=== PATIENT | female | born 1985 | race Caucasian/White ===

== ENCOUNTER 2016-10-11 11:39 | Emergency (ER) | payer OTHER ==
[2016-10-11 11:42] VITALS: TEMP 97.3
--- NOTE | 2016-10-11 12:40 | ED ---
Back Pain HPI - General Chief Complaint: Back Pain/Injury Stated Complaint: back pain Time Seen by Provider: 10/11/16 12:09 Source: patient, RN notes reviewed Limitations: no limitations - History of Present Illness Initial Comments: Patient is a 31-year-old female presents to the emergency room for evaluation of left-sided back pain. Patient states had this back pain on and off since April. 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 Patient states she's noticed the pain ever since she started her job in March. Patient states she has a sharp pain under her left shoulder blade. Patient states pain is worse whenever she lifts or moves the wrong way. Patient states when she sitting still she can feel her muscle spasming. Patient states she has been following up with her primary care provider and has an appointment with neurologist in until October. Patient states she's been placed on baclofen, ibuprofen, Advil, Flexeril with no relief of symptoms. Patient states that she has been applying ice over the area of slight relief of symptoms. Patient denies any numbness or tingling in her extremities. Patient denies fecal or urinary incontinence. Patient denies any known injuries or recent falls or trauma to her back. Patient denies pain or burning during urination, trouble urinating or blood in urine. - Related Data Home Medications Medication Instructions Recorded Confirmed Baclofen 10 mg PO QID PRN 10/11/16 10/11/16 Ibuprofen [Advil] 600 mg PO Q8HR PRN 10/11/16 10/11/16 Previous Rx's Medication Instructions Recorded traMADol HCl [Ultram] 50 mg PO Q4H PRN #12 tab 10/11/16 Allergies Allergy/AdvReac Type Severity Reaction Status Date / Time Sulfa (Sulfonamide Allergy Rash/Hives Verified 10/11/16 11:42 Antibiotics) Review of Systems ROS Statement: Those systems with pertinent positive or pertinent negative responses have been documented in the HPI. ROS Other: All systems not noted in ROS Statement are negative. Past Medical History Past Medical History: Asthma, Fibromyalgia, Osteoarthritis (OA), Pneumonia Additional Past Medical History / Comment(s): EXERCISED INDUCED ASTHMA, CURRENTLY GAINING WT QUICKLY AND CONSTIPATED, HAS NUVARING PRESENT FOR CONTROL, RECENT INJURY TO LT FT BRUISED AND PAINFUL History of Any Multi-Drug Resistant Organisms: None Reported Past Surgical History: Section, Orthopedic Surgery Additional Past Surgical History / Comment(s): CSECTION X3,ARTHROSCOPY EVERARDO KNEES ,LAPAROSCOPY Past Anesthesia/Blood Transfusion Reactions: Motion Sickness Past Psychological History: No Psychological Hx Reported Smoking Status: Current every day smoker Past Alcohol Use History: Rare Additional Past Alcohol Use History / Comment(s): QUIT SMOKING JUN 2014, SMOKED FOR APPROX 15 YRS 1 PACK PER DAY Past Drug Use History: None Reported - Past Family History Father Family Medical History: No Reported History Mother Family Medical History: No Reported History General Exam - General Exam Comments Initial Comments: Sitting in exam room, no acute distress. Limitations: no limitations General appearance: alert, in no apparent distress Head exam: Present: atraumatic, normocephalic, normal inspection Eye exam: Present: normal appearance ENT exam: Present: normal exam Neck exam: Present: normal inspection Respiratory exam: Present: normal lung sounds bilaterally. Absent: respiratory distress Cardiovascular Exam: Present: regular rate, normal rhythm, normal heart sounds Extremities exam: Present: normal inspection Back exam: Present: normal inspection, full ROM, tenderness (Tenderness on palpating inferior to the left shoulder blade muscle spasming) Neurological exam: Present: alert, oriented X3, CN II-XII intact, normal gait Psychiatric exam: Present: normal affect, normal mood Skin exam: Present: warm, dry, intact, normal color. Absent: rash Course Vital Signs 10/11/16 10/11/16 11:40 13:02 Temperature 97.3 F L Pulse Rate 74 85 Respiratory 18 16 Rate Blood Pressure 147/68 121/75 O2 Sat by Pulse 100 100 Oximetry Medical Decision Making - Medical Decision Making Patient is a 31-year-old female presents to the emergency room for evaluation of back pain and muscle spasming. Agreed to send patient home with pain medications until she can follow up with either her primary care provider or neurologist. Patient states she understands everything that was discussed with her. Return parameters discussed. Disposition Clinical Impression: Back pain, Muscle spasm of back Disposition: HOME SELF-CARE Condition: Good Instructions: Muscle Spasm (ED) Additional Instructions: Take medications as needed. Please follow up with primary care provider or neurologist. If any new symptom arises or symptoms worsen, return to ER as soon as possible. Prescriptions: traMADol HCl [Ultram] 50 mg PO Q4H PRN #12 tab PRN Reason: Pain Referrals: Silver Mayes MD [Primary Care Provider] - 1-2 days Time of Disposition: 12:38
[2016-10-11 13:03] VITALS: BP 121/75; PULSE 85; RESP 16
== END 2016-10-11 13:03 | disposition home or self-care (01) ==
LOC: EC 11:39
DX: M62.830 Muscle spasm of back (principal); F17.200 Nicotine dependence, unspecified, uncomplicated; Z88.2 Allergy status to sulfonamides
CPT/HCPCS: 99283

== ENCOUNTER → 2016-11-17 | Outpatient (CLI) | payer OTHER ==
--- NOTE | 2016-11-17 15:56 | MR ---
MR thoracic spine HISTORY: Left-sided thoracic spine back pain Multiplanar multisequence imaging through the thoracic spine No comparisons Thoracic vertebral bodies show preserved height and alignment. There is multilevel spondylosis, endpl ate discogenic marrow signal change and Schmorl node formation. Some loss of disc height and signal i s present especially at T6-7. Thoracic cord signal is maintained. No significant central canal stenos is or foraminal encroachment. There is a mild spinal curvature. T3-4 shows a minute right posterior paracentral disc herniation causing minimal anterior mass effect on the thecal sac. T5-6 shows a minute posterior paracentral disc herniation in the right side. T8-9 shows a small Facet arthropathy changes are present at the lower thoracic spine. IMPRESSION: Mild degenerative disc disease, facet arthropathy. Additional findings above. Posterior d isc herniation causing minimal anterior mass effect on the thecal sac.
== END | disposition home or self-care (01) ==
LOC: RADMRIMAIN 12:40
PROVIDERS: ATTEND Psychiatry & Neurology Neurology
DX: M51.24 Other intervertebral disc displacement, thoracic region (principal); M51.34 Other intervertebral disc degeneration, thoracic region; M46.94 Unspecified inflammatory spondylopathy, thoracic region
CPT/HCPCS: 72146

== ENCOUNTER → 2017-01-25 | Outpatient (CLI) | payer OTHER ==
--- NOTE | 2017-01-25 23:37 | MR ---
EXAMINATION TYPE: MR cervical spine wo con DATE OF EXAM: 01/25/2017 COMPARISON: NONE HISTORY: Pain, Numbness, Tingling, and Swelling in Both Arms TECHNIQUE: Multiplanar, multisequence images of the cervical spine were acquired. Cervical vertebra have normal alignment. Disc spaces are fairly normal. Cervical spinal cord has norm al signal pattern without evidence of edema. There is a small posterior C5-6 disc herniation centrall y and towards the right side. The neural foramina appear fairly well maintained. There is no paraspin al mass. Brainstem is intact. There is no spinal stenosis. There is no fracture. IMPRESSION: There is mild posterior central and right-sided C5-6 cervical disc herniation. No significant impinge ment on the neural elements.
== END | disposition home or self-care (01) ==
LOC: RADMRIMAIN 21:56
PROVIDERS: ATTEND Psychiatry & Neurology Neurology
DX: M50.222 Other cervical disc displacement at C5-C6 level (principal)
CPT/HCPCS: 72141

== ENCOUNTER 2017-03-25 21:05 | Emergency (ER) | payer OTHER ==
[2017-03-25 21:15] VITALS: RESP 16
[2017-03-25] MEDS ORDERED: SODIUM CHLORIDE 0.9% 1,000 ML IV STA (21:25)
[2017-03-25] MEDS ORDERED: KETOROLAC 30 MG/ML 1 ML VIAL IVP STA (21:25)
[2017-03-25] MEDS ORDERED: ONDANSETRON 4 MG/2 ML VIAL IVP STA (21:25)
[2017-03-25 22:23] LABS: Basophils % (A) 0 %; CH 31.5; CHCM 35.3; Eosinophils # (A) 0.2 k/uL (0-0.7); Eosinophils % (A) 2 %; HCT 38.6 % (34.0-46.0); HDW 2.54; HGB 13.7 gm/dL (11.4-16.0); Luc # (Auto) 0.15; Luc % (Auto) 2; Lymphocytes # (A) 1.9 k/uL (1.0-4.8); Lymphocytes % (A) 24 %; MCH 31.8 pg (25.0-35.0); MCHC 35.5 g/dL (31.0-37.0); MCV 89.6 fL (80.0-100.0); Mean Platelet Volume 7.9; Monocytes # (A) 0.3 k/uL (0-1.0); Monocytes % (A) 4 %; Neutrophils # (A) 5.4 k/uL (1.3-7.7); Neutrophils % (A) 67 %; RBC 4.31 m/uL (3.80-5.40); RDW 12.8 % (11.5-15.5); WBC (Perox) 8.27
[2017-03-25 22:35] LABS: ALT 21 U/L (9-52); AST 32 U/L (14-36); Alkaline Phosphatase 35 U/L (38-126); Amylase 36 U/L (30-110); Anion Gap 11 mmol/L; Blood Urea Nitrogen 9 mg/dL (7-17); Calcium 9.4 mg/dL (8.4-10.2); Carbon Dioxide 22 mmol/L (22-30); Chloride 107 mmol/L (98-107); Glucose 79 mg/dL (74-99); Non-African American GFR(MDRD) >60 (>60 ml/min/1.73 sqM); Potassium 4.3 mmol/L (3.5-5.1); Sodium 140 mmol/L (137-145); Total Bilirubin 0.8 mg/dL (0.2-1.3); Total Protein 7.8 g/dL (6.3-8.2)
--- NOTE | 2017-03-25 22:43 | ED ---
Female Urogenital HPI - General Chief complaint: Urogenital Stated complaint: kidney pain/bladder problems Time Seen by Provider: 03/25/17 21:17 Source: patient, RN notes reviewed Mode of arrival: ambulatory Limitations: no limitations - History of Present Illness Initial comments: This is a 31-year-old female presents emergency department she went right flank pain. Patient states it started about couple days. Patient has a history of pyelonephritis. Patient states she has had some urinary frequency and dysuria. She does complain of some mild suprapubic tenderness. Patient denies any vomiting but states she's had some nausea. Denies fever, chills, headache or dizziness. She denies any chance . Denies any vaginal bleeding or vaginal discharge at this time. Last Menstrual Period: 03/18/17 - Related Data Home Medications Medication Instructions Recorded Confirmed Baclofen 10 mg PO QID PRN 10/11/16 10/11/16 Ibuprofen [Advil] 600 mg PO Q8HR PRN 10/11/16 10/11/16 Previous Rx's Medication Instructions Recorded traMADol HCl [Ultram] 50 mg PO Q4H PRN #12 tab 10/11/16 Allergies Allergy/AdvReac Type Severity Reaction Status Date / Time Sulfa (Sulfonamide Allergy Rash/Hives Verified 03/25/17 21:16 Antibiotics) Review of Systems ROS Statement: Those systems with pertinent positive or pertinent negative responses have been documented in the HPI. ROS Other: All systems not noted in ROS Statement are negative. Past Medical History Past Medical History: Asthma, Fibromyalgia, Osteoarthritis (OA), Pneumonia Additional Past Medical History / Comment(s): EXERCISED INDUCED ASTHMA History of Any Multi-Drug Resistant Organisms: None Reported Past Surgical History: Section, Orthopedic Surgery Additional Past Surgical History / Comment(s): CSECTION X3,ARTHROSCOPY EVERARDO KNEES ,LAPAROSCOPY Past Anesthesia/Blood Transfusion Reactions: Motion Sickness Past Psychological History: No Psychological Hx Reported Smoking Status: Current every day smoker Past Alcohol Use History: Rare Past Drug Use History: None Reported - Past Family History Father Family Medical History: No Reported History Mother Family Medical History: No Reported History General Exam Limitations: no limitations General appearance: alert, in no apparent distress Head exam: Present: atraumatic, normocephalic, normal inspection Respiratory exam: Present: normal lung sounds bilaterally. Absent: respiratory distress, wheezes, rales, rhonchi, stridor Cardiovascular Exam: Present: regular rate, normal rhythm, normal heart sounds. Absent: systolic murmur, diastolic murmur, rubs, gallop, clicks GI/Abdominal exam: Present: soft, tenderness (Mild suprapubic tenderness), normal bowel sounds. Absent: distended, guarding, rebound, rigid Back exam: Present: CVA tenderness (R) (Mild right). Absent: CVA tenderness (L) Skin exam: Present: warm, dry, intact, normal color. Absent: rash Course Vital Signs 03/25/17 03/25/17 21:12 23:04 Temperature 98.3 F 98.7 F Pulse Rate 110 H 89 Respiratory 16 16 Rate Blood Pressure 142/85 137/73 O2 Sat by Pulse 100 100 Oximetry Medical Decision Making - Medical Decision Making 31-year-old female presented emergency from for flank pain and lower abdominal pain. Patient's lab work is unremarkable. Patient's urinalysis does not show any acute abnormality. Patient does have a large also on the right and in the rectum. Patient is advised to increase her bowel movement take a stool softener and laxative. Return parameters were discussed. - Lab Data Result diagrams: 03/25/17 21:45 03/25/17 21:45 Lab Results 03/25/17 03/25/17 03/25/17 Range/Units 21:45 21:45 21:45 WBC 8.0 (3.8-10.6) k/uL RBC 4.31 (3.80-5.40) m/uL Hgb 13.7 (11.4-16.0) gm/dL Hct 38.6 (34.0-46.0) % MCV 89.6 (80.0-100.0) fL MCH 31.8 (25.0-35.0) pg MCHC 35.5 (31.0-37.0) g/dL RDW 12.8 (11.5-15.5) % Plt Count 159 (150-450) k/uL Neutrophils % 67 % Lymphocytes % 24 % Monocytes % 4 % Eosinophils % 2 % Basophils % 0 % Neutrophils # 5.4 (1.3-7.7) k/uL Lymphocytes # 1.9 (1.0-4.8) k/uL Monocytes # 0.3 (0-1.0) k/uL Eosinophils # 0.2 (0-0.7) k/uL Basophils # 0.0 (0-0.2) k/uL Sodium 140 (137-145) mmol/L Potassium 4.3 (3.5-5.1) mmol/L Chloride 107 (98-107) mmol/L Carbon Dioxide 22 (22-30) mmol/L Anion Gap 11 mmol/L BUN 9 (7-17) mg/dL Creatinine 0.70 (0.52-1.04) mg/dL Est GFR (MDRD) Af Amer >60 (>60 ml/min/1.73 sqM) Est GFR (MDRD) Non-Af >60 (>60 ml/min/1.73 sqM) Glucose 79 (74-99) mg/dL Plasma Lactic Acid Jeet 1.0 (0.7-2.0) mmol/L Calcium 9.4 (8.4-10.2) mg/dL Total Bilirubin 0.8 (0.2-1.3) mg/dL AST 32 (14-36) U/L ALT 21 (9-52) U/L Alkaline Phosphatase 35 L (38-126) U/L Total Protein 7.8 (6.3-8.2) g/dL Albumin 4.5 (3.5-5.0) g/dL Amylase 36 (30-110) U/L Lipase 41 (23-300) U/L Urine Color Urine Appearance (Clear) Urine pH (5.0-8.0) Ur Specific [place] (1.001-1.035) Urine Protein (Negative) Urine Glucose (UA) (Negative) Urine Ketones (Negative) Urine Blood (Negative) Urine Nitrite (Negative) Urine Bilirubin (Negative) Urine Urobilinogen (<2.0) mg/dL Ur Leukocyte Esterase (Negative) Urine HCG, Qual (Not Detectd) 03/25/17 03/25/17 Range/Units 22:30 22:30 WBC (3.8-10.6) k/uL RBC (3.80-5.40) m/uL Hgb (11.4-16.0) gm/dL Hct (34.0-46.0) % MCV (80.0-100.0) fL MCH (25.0-35.0) pg MCHC (31.0-37.0) g/dL RDW (11.5-15.5) % Plt Count (150-450) k/uL Neutrophils % % Lymphocytes % % Monocytes % % Eosinophils % % Basophils % % Neutrophils # (1.3-7.7) k/uL Lymphocytes # (1.0-4.8) k/uL Monocytes # (0-1.0) k/uL Eosinophils # (0-0.7) k/uL Basophils # (0-0.2) k/uL Sodium (137-145) mmol/L Potassium (3.5-5.1) mmol/L Chloride (98-107) mmol/L Carbon Dioxide (22-30) mmol/L Anion Gap mmol/L BUN (7-17) mg/dL Creatinine (0.52-1.04) mg/dL Est GFR (MDRD) Af Amer (>60 ml/min/1.73 sqM) Est GFR (MDRD) Non-Af (>60 ml/min/1.73 sqM) Glucose (74-99) mg/dL Plasma Lactic Acid Jeet (0.7-2.0) mmol/L Calcium (8.4-10.2) mg/dL Total Bilirubin (0.2-1.3) mg/dL AST (14-36) U/L ALT (9-52) U/L Alkaline Phosphatase (38-126) U/L Total Protein (6.3-8.2) g/dL Albumin (3.5-5.0) g/dL Amylase (30-110) U/L Lipase (23-300) U/L Urine Color Light Yellow Urine Appearance Clear (Clear) Urine pH 6.5 (5.0-8.0) Ur Specific [place] 1.006 (1.001-1.035) Urine Protein Negative (Negative) Urine Glucose (UA) Negative (Negative) Urine Ketones Negative (Negative) Urine Blood Negative (Negative) Urine Nitrite Negative (Negative) Urine Bilirubin Negative (Negative) Urine Urobilinogen <2.0 (<2.0) mg/dL Ur Leukocyte Esterase Negative (Negative) Urine HCG, Qual Not Detected (Not Detectd) Disposition Clinical Impression: Constipation, Abdominal pain Disposition: HOME SELF-CARE Condition: Stable Instructions: Abdominal Pain (ED) Additional Instructions: Please return to the Emergency Department if symptoms worsen or any other concerns. Referrals: Silver Mayes MD [Primary Care Provider] - 1-2 days Time of Disposition: 23:35
[2017-03-25 23:07] LABS: Appearance,Urine Clear (Clear); Bilirubin,Urine Negative (Negative); Glucose,Urine (UA) Negative (Negative); Ketones,Urine Negative (Negative); Leukocyte Esterase,Urine Negative (Negative); Nitrite,Urine Negative (Negative); PH, Urine 6.5 (5.0-8.0); Protein,Urine Negative (Negative); Specific Gravity,Urine 1.006 (1.001-1.035); UA Billing (MACRO vs. MICRO) CHEM; Urobilinogen,Urine <2.0 mg/dL (<2.0)
[2017-03-25] MEDS ORDERED: MORPHINE SULFATE 2 MG/ML SYRINGE IVP ONE (23:07)
--- NOTE | 2017-03-25 23:38 | XR ---
EXAM: XR Abdomen, 1 View CLINICAL HISTORY: Reason: abdominal pain TECHNIQUE: Frontal supine view of the abdomen/pelvis. COMPARISON: 03/07/2015 FINDINGS: Gastrointestinal tract: Stool seen throughout the colon, which may represent constipation. No dilation. Bones/joints: Unremarkable. IMPRESSION: Stool seen from the colon, which may represent constipation. Otherwise, no acute findings.
[2017-03-26 01:05] VITALS: BP 120/56; PULSE 80; TEMP 98.2
== END 2017-03-26 01:05 | disposition home or self-care (01) ==
LOC: EC 21:05
DX: K59.00 Constipation, unspecified (principal); F17.200 Nicotine dependence, unspecified, uncomplicated; Z88.2 Allergy status to sulfonamides
CPT/HCPCS: 36415; 80053; 82150; 83605; 83690; 85025; 81003; 81025; 87040; 87086; 74000; 99284; 96374; 96375 ×2; 96361 ×2; J2405; J1885; J2270

== ENCOUNTER 2017-06-11 16:05 | Emergency (ER) | payer OTHER ==
[2017-06-11 16:12] VITALS: BP 149/74; PULSE 99; RESP 18; TEMP 98.2
[2017-06-11] MEDS ORDERED: HYDROcodone/APAP 5-325MG 1 EACH TAB PO STA (16:33)
[2017-06-11] MEDS ORDERED: predniSONE 20 MG TAB PO STA (16:33)
--- NOTE | 2017-06-11 16:39 | ED ---
Neck Injury/Pain HPI - General Chief Complaint: Neck Pain/Injury Stated Complaint: neck pain Time Seen by Provider: 06/11/17 16:13 Mode of arrival: ambulatory Limitations: no limitations - History of Present Illness Initial Comments: Patient is a 32-year-old female presenting to the emergency department with chief complaint of cervical neck pain radiating down her right shoulder and arm. Patient states she has a history of a herniated cervical disc but has had progressive pain over the last 5 days. Patient is currently describing neck pain as sharp and rated 8 out of 10 exacerbated with movement somewhat relieved at rest. Patient states she took baclofen and Tylenol 3 prior to arrival with minimal relief. Patient denies recent illness, fevers, nausea, vomiting, shortness of breath, chest pain, or abdominal pain. Patient states her last MRI of her neck was in December of this year. Patient denies any recent injury or trauma. - Related Data Home Medications Medication Instructions Recorded Confirmed Baclofen 10 mg PO QID PRN 10/11/16 06/11/17 Ibuprofen [Advil] 600 mg PO Q8HR PRN 10/11/16 06/11/17 Acetaminophen-Codeine 300-30mg 1 tab PO TID PRN 06/11/17 06/11/17 [Tylenol #3] Naproxen Sodium [Aleve] 220 mg PO Q12HR PRN 06/11/17 06/11/17 Previous Rx's Medication Instructions Recorded HYDROcodone/APAP 5-325MG [[place] 1 tab PO Q6H PRN #20 tab 06/11/17 5-325] predniSONE 20 mg PO BID #8 tab 06/11/17 Allergies Allergy/AdvReac Type Severity Reaction Status Date / Time Sulfa (Sulfonamide Allergy Rash/Hives Verified 06/11/17 16:19 Antibiotics) Review of Systems ROS Statement: Those systems with pertinent positive or pertinent negative responses have been documented in the HPI. ROS Other: All systems not noted in ROS Statement are negative. Past Medical History Past Medical History: Asthma, Fibromyalgia, Osteoarthritis (OA), Pneumonia Additional Past Medical History / Comment(s): EXERCISED INDUCED ASTHMA History of Any Multi-Drug Resistant Organisms: None Reported Past Surgical History: Section, Orthopedic Surgery Additional Past Surgical History / Comment(s): CSECTION X3,ARTHROSCOPY EVERARDO KNEES ,LAPAROSCOPY, neck pain- herniated disk Past Anesthesia/Blood Transfusion Reactions: Motion Sickness Past Psychological History: No Psychological Hx Reported Smoking Status: Current every day smoker Past Alcohol Use History: None Reported Past Drug Use History: None Reported - Past Family History Father Family Medical History: No Reported History Mother Family Medical History: No Reported History General Exam Limitations: no limitations General appearance: alert, in no apparent distress Head exam: Present: atraumatic, normocephalic, normal inspection Eye exam: Present: normal appearance ENT exam: Present: normal exam, mucous membranes moist, normal external ear exam Neck exam: Present: normal inspection, tenderness (Tenderness to left posterior neck). Absent: meningismus, full ROM (Pain with range of motion in all directions) Respiratory exam: Present: normal lung sounds bilaterally. Absent: respiratory distress, wheezes, rales, rhonchi, decreased breath sounds Cardiovascular Exam: Present: regular rate, normal rhythm, normal heart sounds. Absent: systolic murmur GI/Abdominal exam: Present: soft, normal bowel sounds. Absent: distended, diminished bowel sounds Extremities exam: Present: normal inspection, full ROM, normal capillary refill. Absent: tenderness Back exam: Present: normal inspection, full ROM. Absent: tenderness, muscle spasm, paraspinal tenderness, vertebral tenderness, rash noted Neurological exam: Present: alert, oriented X3, CN II-XII intact, normal gait, other (No focal deficits noted). Absent: motor sensory deficit Psychiatric exam: Present: normal affect, normal mood Skin exam: Present: warm, dry, intact, normal color Course Vital Signs 06/11/17 16:09 Temperature 98.2 F Pulse Rate 99 Respiratory 18 Rate Blood Pressure 149/74 O2 Sat by Pulse 100 Oximetry Medical Decision Making - Medical Decision Making Cervical radiculopathy. Chronic pain syndrome. Patient prescribed prednisone and short supply of [place] 5. Patient instructed to follow-up with orthopedic service for possible MRI. Patient instructed to return to emergency department with any new worsening symptoms. Patient agrees with treatment plan. Discharge instructions and return parameters reviewed. Disposition Clinical Impression: Cervical radiculopathy Disposition: HOME SELF-CARE Condition: Good Instructions: Cervical Strain (ED) Additional Instructions: Continue steroids and pain medication as needed. Follow-up with orthopedic service next 24-48 hours. Please return to the emergency department with any new or worsening symptoms. Prescriptions: HYDROcodone/APAP 5-325MG [[place] 5-325] 1 tab PO Q6H PRN #20 tab PRN Reason: Pain predniSONE 20 mg PO BID #8 tab Referrals: Silver Mayes MD [Primary Care Provider] - 1-2 days Jagjit Cano MD [STAFF PHYSICIAN] - 1-2 days Time of Disposition: 16:38
== END 2017-06-11 16:47 | disposition home or self-care (01) ==
LOC: EC 16:05
DX: M54.12 Radiculopathy, cervical region (principal); F17.200 Nicotine dependence, unspecified, uncomplicated; Z87.39 Personal history of other diseases of the musculoskeletal system and connective tissue; Z88.2 Allergy status to sulfonamides
CPT/HCPCS: 99283; J7512

== ENCOUNTER → 2018-01-08 | Outpatient (CLI) | payer OTHER ==
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
== END | disposition home or self-care (01) ==
LOC: RADMRIMAIN 21:12
PROVIDERS: ATTEND Psychiatry & Neurology Neurology
DX: M50.222 Other cervical disc displacement at C5-C6 level (principal); M51.24 Other intervertebral disc displacement, thoracic region
CPT/HCPCS: 72141; 72146

== ENCOUNTER → 2018-01-16 | Outpatient (CLI) | payer OTHER ==
[2018-01-16 09:27] LABS: HCT 40.6 % (34.0-46.0); HGB 13.6 gm/dL (11.4-16.0); MCH 30.7 pg (25.0-35.0); MCHC 33.5 g/dL (31.0-37.0); MCV 91.5 fL (80.0-100.0); Mean Platelet Volume 7.3; Platelet Count 140 k/uL (150-450); RBC 4.44 m/uL (3.80-5.40); RDW 13.1 % (11.5-15.5); WBC 6.6 k/uL (3.8-10.6)
[2018-01-16 09:57] LABS: Albumin 3.7 g/dL (3.5-5.0); Alkaline Phosphatase 35 U/L (38-126); Calcium 8.6 mg/dL (8.4-10.2); Cholesterol 155 mg/dL (<200); LDL Cholesterol,Calculated 81 mg/dL (0-99); Potassium 4.5 mmol/L (3.5-5.1); Total Bilirubin 0.3 mg/dL (0.2-1.3)
[2018-01-16 10:10] LABS: T4, Free (Free Thyroxine) 1.04 ng/dL (0.78-2.19)
[2018-01-16 11:00] LABS: ALT 23 U/L (9-52); AST 14 U/L (14-36); Anion Gap 8 mmol/L; Blood Urea Nitrogen 11 mg/dL (7-17); Carbon Dioxide 23 mmol/L (22-30); Chloride 109 mmol/L (98-107); Glucose 92 mg/dL (74-99); HDL Cholesterol 47 mg/dL (40-60); Sodium 140 mmol/L (137-145); Total Protein 6.2 g/dL (6.3-8.2); Triglycerides 133 mg/dL (<150)
== END | disposition home or self-care (01) ==
LOC: LABWHC1 08:28
PROVIDERS: ATTEND Internal Medicine
DX: M79.7 Fibromyalgia (principal); M54.5 Low back pain; D51.9 Vitamin B12 deficiency anemia, unspecified
CPT/HCPCS: 36415; 80053; 80061; 82607; 84439; 84443; 85027

== ENCOUNTER 2018-04-24 16:16 | Emergency (ER) | payer OTHER ==
[2018-04-24 16:28] VITALS: RESP 18; TEMP 98.5
--- NOTE | 2018-04-24 16:51 | ED ---
General Adult HPI - General Chief complaint: Neuro Symptoms/Deficit Stated complaint: facial numbness Time Seen by Provider: 04/24/18 16:49 Source: patient, RN notes reviewed Mode of arrival: ambulatory Limitations: no limitations - History of Present Illness Initial comments: 33-year-old female presents to the emergency department for a chief complaint of ear numbness times one day. Patient states she started to notice that her ear was numb this morning. She states that the numbness has spread somewhat about 2 cm down her face into centimeters behind the ear. Patient denies any hearing loss. She states she can hear without difficulty in the right ear. Patient denies any tinnitus. She denies any nausea, vomiting, or dizziness Patient admits to mild headache but states this is consistent with past tension headaches. Patient states she has been drinking monster energy drinks and she looked online and read that this could be a symptom of caffeine.Patient has no other complaints at this time including shortness of breath, chest pain, abdominal pain, nausea or vomiting, or visual changes. - Related Data Home Medications Medication Instructions Recorded Confirmed Baclofen 10 mg PO QID PRN 10/11/16 04/24/18 HYDROcodone/APAP 10-325MG [[place] 1 tab PO BID PRN 04/24/18 04/24/18 10-325] Vitamin B Complex [place] 1 spray SUBLINGUAL DAILY 04/24/18 04/24/18 Allergies Allergy/AdvReac Type Severity Reaction Status Date / Time Sulfa (Sulfonamide Allergy Rash/Hives Verified 04/24/18 16:37 Antibiotics) Review of Systems ROS Statement: Those systems with pertinent positive or pertinent negative responses have been documented in the HPI. ROS Other: All systems not noted in ROS Statement are negative. Past Medical History Past Medical History: Asthma, Fibromyalgia, Osteoarthritis (OA), Pneumonia Additional Past Medical History / Comment(s): EXERCISED INDUCED ASTHMA, chronic neck and back pain History of Any Multi-Drug Resistant Organisms: None Reported Past Surgical History: Section, Orthopedic Surgery Additional Past Surgical History / Comment(s): CSECTION X3,ARTHROSCOPY EVERARDO KNEES ,LAPAROSCOPY, Past Anesthesia/Blood Transfusion Reactions: Motion Sickness Past Psychological History: No Psychological Hx Reported Smoking Status: Current every day smoker Past Alcohol Use History: None Reported Past Drug Use History: None Reported - Past Family History Father Family Medical History: No Reported History Mother Family Medical History: No Reported History General Exam Limitations: no limitations General appearance: alert, in no apparent distress Head exam: Present: atraumatic, normocephalic, normal inspection Eye exam: Present: normal appearance, PERRL, EOMI. Absent: scleral icterus, conjunctival injection, periorbital swelling ENT exam: Present: normal exam, normal oropharynx, mucous membranes moist, TM's normal bilaterally. Absent: normal external ear exam (Patient has numbness to the R ear but does have sensation immediately anterior and posterior to the ear. ) Neck exam: Present: normal inspection, full ROM. Absent: tenderness, meningismus, lymphadenopathy Respiratory exam: Present: normal lung sounds bilaterally. Absent: respiratory distress, wheezes, rales, rhonchi, stridor Cardiovascular Exam: Present: regular rate, normal rhythm, normal heart sounds. Absent: systolic murmur, diastolic murmur, rubs, gallop, clicks Extremities exam: Present: full ROM (Moving all extremities) Neurological exam: Present: alert, oriented X3, CN II-XII intact, normal gait. Absent: motor sensory deficit Expanded Patient oriented to: Present: person, place, time Speech: Present: fluid speech Cranial nerves: EOM's Intact: Normal, Tongue Deviation: Normal, Nystagmus: Normal, Facial Sensation: Normal Cerebellar function: Finger to Nose: Normal, Heel to Montiel: Normal, Romberg: Normal Upper motor neuron: Pronator Drift: Normal Sensory exam: Upper Extremity Light Touch: Normal, Upper Extremity Pin Prick: Normal, Lower Extremity Light Touch: Normal, Lower Extremity Pin Prick: Normal Motor strength exam: RUE: 5, LUE: 5, RLE: 5, LLE: 5 Eye Response: (4) open spontaneously Motor Response: (6) obeys commands Verbal Response: (5) oriented [place] Total: 15 Psychiatric exam: Present: normal affect, normal mood Course Vital Signs 04/24/18 04/24/18 16:25 19:18 Temperature 98.5 F Pulse Rate 107 H 94 Respiratory 18 18 Rate Blood Pressure 150/88 146/83 O2 Sat by Pulse 100 100 Oximetry Medical Decision Making - Medical Decision Making 33-year-old female presents to the emergency department for a chief complaint of numbness to the right ear. This started today. Patient is numb along the auricle of the ear and does not have intact sensation. However patient does have intact sensation anterior and posterior to the ear. No focal neuro deficits. No facial droop. Speech normal. CT IAC shows a negative exam. The cochlear semicircular canals are symmetric. Vestibular aqueducts and internal carotid canal appear unremarkable. Middle ear ossicles are symmetric and unremarkable. There is no evidence of suspicious surrounding soft tissue density to suggest cholesteatoma. At this time patient can follow up with primary care. She is to return to the emergency Department if she has any worsening symptoms. Disposition Clinical Impression: Paresthesia, Ear symptom Disposition: HOME SELF-CARE Condition: Good Instructions: Paresthesia (ED) Additional Instructions: Please follow up with primary care in 1-2 days. Return to the emergency department if you have any worsening symptoms. Is patient prescribed a controlled substance at d/c from ED?: No Referrals: Silver Mayes MD [Primary Care Provider] - 1-2 days Time of Disposition: 19:21
--- NOTE | 2018-04-24 18:57 | CT ---
EXAMINATION TYPE: CT iac wo con DATE OF EXAM: 04/24/2018 HISTORY: RIGHT ear numbness CT DLP: 150mGycm Automated exposure control for dose reduction was used. FINDINGS: The external auditory canals are patent bilaterally. Mastoid air cells show no evidence of abnormal opacification bilaterally. The middle ear ossicles are symmetric and unremarkable. There is no evidence of suspicious surroundin g soft tissue density to suggest cholesteatoma. The scutum is preserved bilaterally. The cochlea and the semicircular canals are symmetric and unremarkable. Vestibular aqueduct and internal carotid canal appear unremarkable. Temporomandibular joints are maintained bilaterally. IMPRESSION: NEGATIVE EXAMINATION.
[2018-04-24 19:18] VITALS: BP 146/83; PULSE 94
== END 2018-04-24 19:31 | disposition home or self-care (01) ==
LOC: EC 16:16
DX: R20.2 Paresthesia of skin (principal); R20.0 Anesthesia of skin; F17.200 Nicotine dependence, unspecified, uncomplicated; Z88.2 Allergy status to sulfonamides
CPT/HCPCS: 70480; 99284

== ENCOUNTER 2019-02-26 17:53 | Emergency (ER) | payer OTHER ==
[2019-02-26 18:07] VITALS: PULSE 98
[2019-02-26 18:44] LABS: Basophils % (A) 0 %; Eosinophils # (A) 0.3 k/uL (0-0.7); Eosinophils % (A) 4 %; HCT 38.5 % (34.0-46.0); HGB 12.8 gm/dL (11.4-16.0); Lymphocytes # (A) 1.7 k/uL (1.0-4.8); Lymphocytes % (A) 21 %; MCHC 33.3 g/dL (31.0-37.0); MCV 90.1 fL (80.0-100.0); Mean Platelet Volume 8.2; Monocytes # (A) 0.4 k/uL (0-1.0); Monocytes % (A) 5 %; Neutrophils # (A) 5.4 k/uL (1.3-7.7); Neutrophils % (A) 68 %; Platelet Count 135 k/uL (150-450); RBC 4.27 m/uL (3.80-5.40); WBC 7.9 k/uL (3.8-10.6)
[2019-02-26 18:55] LABS: Appearance,Urine Clear (Clear); Bilirubin,Urine Negative (Negative); Blood,Urine Negative (Negative); Color,Urine Yellow; Glucose,Urine (UA) Negative (Negative); Ketones,Urine Negative (Negative); Leukocyte Esterase,Urine Negative (Negative); Nitrite,Urine Negative (Negative); Protein,Urine Negative (Negative); Specific Gravity,Urine 1.014 (1.001-1.035); Urobilinogen,Urine <2.0 mg/dL (<2.0)
[2019-02-26 19:07] LABS: ALT 11 U/L (9-52); AST 12 U/L (14-36); African American GFR (CKD) >90 (>60 ml/min/1.73 sqM); Albumin 3.7 g/dL (3.5-5.0); Alkaline Phosphatase 40 U/L (38-126); Amylase <30 U/L (30-110); Anion Gap 6 mmol/L; Blood Urea Nitrogen 15 mg/dL (7-17); Calcium 8.7 mg/dL (8.4-10.2); Carbon Dioxide 26 mmol/L (22-30); Chloride 106 mmol/L (98-107); Glucose 79 mg/dL (74-99); Sodium 138 mmol/L (137-145); Total Bilirubin 0.2 mg/dL (0.2-1.3); Total Protein 6.3 g/dL (6.3-8.2)
[2019-02-26] MEDS ORDERED: MORPHINE SULFATE 2 MG/ML SYRINGE IM STA (20:42)
--- NOTE | 2019-02-26 21:06 | US ---
EXAMINATION TYPE: US transvaginal DATE OF EXAM: 02/26/2019 COMPARISON: CT 2016 CLINICAL HISTORY: Pain, hx cysts and endometriosis. Pain x 2 days. Hx cysts and endometriosis. 3 C-Se ctions. Laparoscopy. . TECHNIQUE: Transvaginal (TV). Date of LMP: 02/22/2019 EXAM MEASUREMENTS: Uterus: 11.5 x 8.1 x 6.7 cm Endometrial Stripe: 0.92, limited cm Right Ovary: not seen Left Ovary: not seen *Limited due to pain and bowel. 1. Uterus: Heterogeneous area with vascularity measured slightly right of midline uterus: 5.2 x 5.3 x 5.5 cm. Hypoechoic area seen lower uterine segment measurin.1 x 2.5 x 0.7 cm. 2. Endometrium: Limited 3. Right Ovary: not seen 4. Left Ovary: not seen 5. Bilateral Adnexa: appear wnl 6. Posterior cul-de-sac: appears wnl IMPRESSION: 1. Uterus is heterogeneous and appears to contain a 5.5 cm mass. Additional suspected mass within the lower uterine segment. Uterine fibroids would be the most likely etiology. MRI is recommended for fu rther evaluation. Due to the distortion of the uterus endometrium is not identified.
--- NOTE | 2019-02-26 21:46 | ED ---
Abdominal Pain HPI - General Chief Complaint: Abdominal Pain Stated Complaint: Abd Pain Time Seen by Provider: 02/26/19 18:11 Source: patient Mode of arrival: ambulatory Limitations: no limitations - History of Present Illness Initial Comments: 33-year-old female with history of endometriosis, ovarian cysts presented for chief complaint of lower pelvic pain. Patient states that she has had midline lower pelvic pain that is sharp in nature and occasionally crampy. She states that she started her menstrual period on and she only has one every 3 months due to her nuva ring She states this is her periods are scheduled by her previous [employer] due to endometriosis. Patient currently looking for new OBGYN. Patient states since Monday she has had the pain that is increased from her baseline. Patient states at times it radiates towards the left lower quadrant but is more all over the lower pelvic region. She denies concern for STD. Pat ient denies . Patient denies dysuria urgency frequency or increase in vaginal discharge. Patient states she still has a light brownish discharge from her menstrual.. She denies any heavy vaginal bleeding. She denies any nausea or vomiting or diarrhea. Patient denies fevers. Remaining review of systems negative upon arrival patient appears well very no signs of acute distress vital signs are within acceptable limits. - Related Data Home Medications Medication Instructions Recorded Confirmed Baclofen 10 mg PO QID PRN 10/11/16 04/24/18 HYDROcodone/APAP 10-325MG [[place] 1 tab PO BID PRN 04/24/18 04/24/18 10-325] Vitamin B Complex [place] 1 spray SUBLINGUAL DAILY 04/24/18 04/24/18 Allergies Allergy/AdvReac Type Severity Reaction Status Date / Time Sulfa (Sulfonamide Allergy Rash/Hives Verified 04/24/18 16:37 Antibiotics) Review of Systems ROS Statement: Those systems with pertinent positive or pertinent negative responses have been documented in the HPI. ROS Other: All systems not noted in ROS Statement are negative. Past Medical History Past Medical History: Asthma, Fibromyalgia, Osteoarthritis (OA), Pneumonia Additional Past Medical History / Comment(s): EXERCISED INDUCED ASTHMA, chronic neck and back pain History of Any Multi-Drug Resistant Organisms: None Reported Past Surgical History: Section, Orthopedic Surgery Additional Past Surgical History / Comment(s): CSECTION X3,ARTHROSCOPY [place] KNEES,LAPAROSCOPY, Past Anesthesia/Blood Transfusion Reactions: Motion Sickness Past Psychological History: No Psychological Hx Reported Smoking Status: Current every day smoker Past Alcohol Use History: None Reported Past Drug Use History: None Reported - Past Family History Father Family Medical History: No Reported History Mother Family Medical History: No Reported History General Exam - General Exam Comments Initial Comments: General: The patient is awake and alert, in no distress, and does not appear acutely ill. Eye: +3mm pupils are equal, round and reactive to light, extra-ocular movements are intact. No nystagmus. There is normal conjunctiva bilaterally. No signs of icterus. Ears, nose, mouth and throat: There are moist mucous membranes and no oral lesions. Neck: The neck is supple, there is no tenderness or JVD. Cardiovascular: There is a regular rate and rhythm. No murmur, rub or gallop is appreciated. Respiratory: Lungs are clear to auscultation, respirations are non-labored, breath sounds are equal. No wheezes, stridor, rales, or rhonchi. Gastrointestinal: Soft, non-distended, midline tenderness to palpation of pelvic region, diffusely. abdomen without masses or organomegaly noted. There is no rebound or guarding present. No CVA tenderness. Bowel sounds are unremarkable. Pelvic exam revealed no adnexal tenderness no cervical motion tenderness About discharge in vault. Brownish tent no bright red blood. Musculoskeletal: Normal ROM, no tenderness. Strength 5/5. Sensation intact. Pulses equal bilaterally 2+. Neurological: A&O x 3. CN II-XII intact, There are no obvious motor or sensory deficits. Coordination appears grossly intact. Speech is normal. Skin: Skin is warm and dry and no rashes or lesions are noted. Psychiatric: Cooperative, appropriate mood & affect, normal judgment. Limitations: no limitations Course Vital Signs 02/26/19 02/26/19 18:04 22:07 Temperature 98.6 F 98.4 F Pulse Rate 98 98 Respiratory 16 18 Rate Blood Pressure 113/71 114/61 O2 Sat by Pulse 98 98 Oximetry Medical Decision Making - Medical Decision Making 33yo with history of endometriosis presnting for pelvic pain. Diffuse on abdominal exam. No signs of peritoneal irritation. Fibroid on ultrasound ovaries not visualized patient did not have appreciable adnexal tenderness. Mostly midline/uterine. Hcg (-). CT no acute abnormalities or large cystts noted. Noted enlarged myometrium. Patient pain controlled with once dose IV medications. Patient repeat exam, improvement. Patient requesting discharge. Return parameters discussed, discussed case wt attending provider. Recommended PCP and OBGYN f/u. Patient is agreeable with care plan, return parameters. Patient discharged appearing well.. - Lab Data Result diagrams: 02/26/19 18:30 02/26/19 18:30 Lab Results 02/26/19 02/26/19 02/26/19 Range/Units 18:30 18:30 18:32 WBC 7.9 (3.8-10.6) k/uL RBC 4.27 (3.80-5.40) m/uL Hgb 12.8 (11.4-16.0) gm/dL Hct 38.5 (34.0-46.0) % MCV 90.1 (80.0-100.0) fL MCH 30.0 (25.0-35.0) pg MCHC 33.3 (31.0-37.0) g/dL RDW 13.0 (11.5-15.5) % Plt Count 135 L (150-450) k/uL Neutrophils % 68 % Lymphocytes % 21 % Monocytes % 5 % Eosinophils % 4 % Basophils % 0 % Neutrophils # 5.4 (1.3-7.7) k/uL Lymphocytes # 1.7 (1.0-4.8) k/uL Monocytes # 0.4 (0-1.0) k/uL Eosinophils # 0.3 (0-0.7) k/uL Basophils # 0.0 (0-0.2) k/uL Sodium 138 (137-145) mmol/L Potassium 4.0 (3.5-5.1) mmol/L Chloride 106 (98-107) mmol/L Carbon Dioxide 26 (22-30) mmol/L Anion Gap 6 mmol/L BUN 15 (7-17) mg/dL Creatinine 0.66 (0.52-1.04) mg/dL Est GFR (CKD-EPI)AfAm >90 (>60 ml/min/1.73 sqM) Est GFR (CKD-EPI)NonAf >90 (>60 ml/min/1.73 sqM) Glucose 79 (74-99) mg/dL Calcium 8.7 (8.4-10.2) mg/dL Total Bilirubin 0.2 (0.2-1.3) mg/dL AST 12 L (14-36) U/L ALT 11 (9-52) U/L Alkaline Phosphatase 40 (38-126) U/L Total Protein 6.3 (6.3-8.2) g/dL Albumin 3.7 (3.5-5.0) g/dL Amylase <30 L (30-110) U/L Lipase 35 (23-300) U/L Urine Color Urine Appearance (Clear) Urine pH (5.0-8.0) Ur Specific [place] (1.001-1.035) Urine Protein (Negative) Urine Glucose (UA) (Negative) Urine Ketones (Negative) Urine Blood (Negative) Urine Nitrite (Negative) Urine Bilirubin (Negative) Urine Urobilinogen (<2.0) mg/dL Ur Leukocyte Esterase (Negative) Urine HCG, Qual Not Detected (Not Detectd) 02/26/19 Range/Units 18:32 WBC (3.8-10.6) k/uL RBC (3.80-5.40) m/uL Hgb (11.4-16.0) gm/dL Hct (34.0-46.0) % MCV (80.0-100.0) fL MCH (25.0-35.0) pg MCHC (31.0-37.0) g/dL RDW (11.5-15.5) % Plt Count (150-450) k/uL Neutrophils % % Lymphocytes % % Monocytes % % Eosinophils % % Basophils % % Neutrophils # (1.3-7.7) k/uL Lymphocytes # (1.0-4.8) k/uL Monocytes # (0-1.0) k/uL Eosinophils # (0-0.7) k/uL Basophils # (0-0.2) k/uL Sodium (137-145) mmol/L Potassium (3.5-5.1) mmol/L Chloride (98-107) mmol/L Carbon Dioxide (22-30) mmol/L Anion Gap mmol/L BUN (7-17) mg/dL Creatinine (0.52-1.04) mg/dL Est GFR (CKD-EPI)AfAm (>60 ml/min/1.73 sqM) Est GFR (CKD-EPI)NonAf (>60 ml/min/1.73 sqM) Glucose (74-99) mg/dL Calcium (8.4-10.2) mg/dL Total Bilirubin (0.2-1.3) mg/dL AST (14-36) U/L ALT (9-52) U/L Alkaline Phosphatase (38-126) U/L Total Protein (6.3-8.2) g/dL Albumin (3.5-5.0) g/dL Amylase (30-110) U/L Lipase (23-300) U/L Urine Color Yellow Urine Appearance Clear (Clear) Urine pH 8.0 (5.0-8.0) Ur Specific [place] 1.014 (1.001-1.035) Urine Protein Negative (Negative) Urine Glucose (UA) Negative (Negative) Urine Ketones Negative (Negative) Urine Blood Negative (Negative) Urine Nitrite Negative (Negative) Urine Bilirubin Negative (Negative) Urine Urobilinogen <2.0 (<2.0) mg/dL Ur Leukocyte Esterase Negative (Negative) Urine HCG, Qual (Not Detectd) Disposition Clinical Impression: Pelvic pain, Uterine fibroid Disposition: HOME SELF-CARE Condition: Good Instructions (If sedation given, give patient instructions): Pelvic Pain in Women (ED) Additional Instructions: Please use medication as discussed. Please follow-up with family doctor in the next 2 days, and OBGYN within next 1-2 weeks. If pain is not controlled, worsens, or any other concerned please immediately return to the ER as discussed. Is patient prescribed a controlled substance at d/c from ED?: No Referrals: None,Stated [Primary Care Provider] - 1-2 days Rohith Dexter MD [STAFF PHYSICIAN] - 1-2 days Amelia Lowery MD [STAFF PHYSICIAN] - 1-2 days Robbi Bhandari DO [REFERRING] - 1-2 days Winter Hurley DO [Doctor of Osteopathic Medicine] - 1-2 days Time of Disposition: 22:31
[2019-02-26 22:08] VITALS: BP 114/61; RESP 18; TEMP 98.4
--- NOTE | 2019-02-26 22:18 | CT ---
EXAM: CT Abdomen and Pelvis With Intravenous Contrast CLINICAL HISTORY: pelvic pain non visualized ovaries TECHNIQUE: Axial computed tomography images of the abdomen and pelvis with intravenous contrast. CTDI is 0.085, 0.085, 6.4, 6.1 mGy and DLP is 573. 2 mGy-cm. This CT exam was performed using one or more of the following dose reduction techniques: automated exposure control, adjustment of the mA and/or kV according to patient size, and/or use of iterative reconstruction technique. COMPARISON: No relevant prior studies available. FINDINGS: Lung bases: Stable indeterminate subcentimeter right middle lobe pulmonary micronodules are likely benign. ABDOMEN: Liver: Hepatomegaly. No focal lesions. Gallbladder and bile ducts: Unremarkable. No calcified stones. Pancreas: Unremarkable. Spleen: Unremarkable. Adrenals: Unremarkable. Kidneys and ureters: Unremarkable. No solid mass. No hydronephrosis. Stomach and bowel: Unremarkable. Bowel is nondilated. PELVIS: Appendix: No findings to suggest acute appendicitis. Bladder: Unremarkable. Reproductive: Enlarged myomatous uterus. ABDOMEN and PELVIS: Intraperitoneal space: Unremarkable. No free air. Bones/joints: No acute osseous abnormality. Soft tissues: Unremarkable. Vasculature: Unremarkable. No abdominal aortic aneurysm. Lymph nodes: Unremarkable. Tubes, lines and devices: Vaginal contraceptive device. IMPRESSION: No acute findings.
[2019-02-27 16:15] LABS: C. trachomatis,PCR Negative (Neg,Equiv); Chlamydia trachomatis Source Vagina
[2019-02-27 16:17] LABS: N. gonorrhoeae,PCR Negative (Neg,Equiv); Neisseria Source Vagina
== END 2019-02-26 22:42 | disposition home or self-care (01) ==
LOC: EC 17:53
DX: D25.9 Leiomyoma of uterus, unspecified (principal); N85.2 Hypertrophy of uterus; F17.200 Nicotine dependence, unspecified, uncomplicated; Z88.2 Allergy status to sulfonamides; Z87.42 Personal history of other diseases of the female genital tract
CPT/HCPCS: 36415; 74177; 76830; 80053; 81003; 81025; 82150; 83690; 85025; 87070; 87205; 87491; 87591; 96372; 99284

== ENCOUNTER → 2019-04-05 | Outpatient (CLI) | payer OTHER ==
--- NOTE | 2019-04-06 14:11 | CT ---
EXAMINATION TYPE: CT chest w con DATE OF EXAM: 04/05/2019 COMPARISON: HISTORY: Pulmonary nodule CT DLP: 135.70 mGycm, Automated exposure control for dose reduction was used. CONTRAST: Performed injected with 100 mL of Isovue 300. TECHNIQUE: Axial images were obtained at 5 mm thick sections. Reconstructed images are reviewed on [employer] computer in the coronal plane. FINDINGS: Portion of the thyroid visualized is normal. There is a small area of pneumonitis within the right middle lobe measuring 0.5 cm. Series 5 image 25 . There is a subtle 0.3 cm nodule within the lingula. Series 5 image 24. There is a subtle peripheral nodule measuring 0.4 cm in the right middle lobe. Series 4 image 37. No enlarged mediastinal or hilar adenopathy is evident. The ascending aorta diameter at the level o f the main pulmonary artery is 2.9 cm. The main pulmonary artery diameter at the bifurcation is 2.[address] sections are obtained through the upper abdomen. Abdomen is essentially unremarkable. IMPRESSIONS: 1. Few small subtle areas of increased density within the lungs discussed above. Follow-up exam in 6 months is recommended to reevaluate these pulmonary findings.
== END | disposition home or self-care (01) ==
LOC: RADCTMAIN 16:39
PROVIDERS: ATTEND Family Medicine
DX: R91.8 Other nonspecific abnormal finding of lung field (principal); Z88.0 Allergy status to penicillin
CPT/HCPCS: 71260; Q9967